=== PATIENT | female | born 1950 | race Caucasian/White ===

== ENCOUNTER 2019-05-06 19:01 | Emergency (ER) | payer MEDICARE, BC ==
--- NOTE | 2019-05-06 19:55 | CR ---
[id number] RAD/RAD Ribs Right W PA Chest EXAM: RAD Ribs Right W PA Chest INDICATION: FALL COMPARISON: None. FINDINGS: There is an acute right sixth rib fracture with minimal displacement. No other fracture is identified. The lungs are mildly hyperinflated, but clear. No pneumothorax. Normal heart size. IMPRESSION: 1. Acute minimally displaced right sixth rib fracture. Cristhian Sherman MD 05/06/191953 Thank you for allowing us to participate in the care of your patient.
--- NOTE | 2019-05-06 20:05 | EDM.PDOC ---
ED HPI GENERAL MEDICAL PROBLEM - General Chief Complaint: General Stated Complaint: FELL YESTERDAY Time Seen by Provider: 05/06/19 19:17 Source of Information: Reports: Patient History Limitations: Reports: No Limitations - History of Present Illness INITIAL COMMENTS - FREE TEXT/NARRATIVE: Fell yesterday and hurt right ribs Increased pain with movement Duration: Day(s):, Getting Worse Location: Reports: Chest Quality: Reports: Stabbing Severity: Moderate Worsens with: Reports: Breathing, Movement Context: Reports: Trauma Associated Symptoms: Reports: No Other Symptoms ED ROS GENERAL - Review of Systems Review Of Systems: See Below Respiratory: Reports: Shortness of Breath, Other (Right chest wall pain) Cardiovascular: Reports: No Symptoms ED EXAM, GENERAL - Physical Exam Exam: See Below Respiratory/Chest: Lungs Clear, Other (Right rib pain) Course - Orders/Labs/Meds Meds: Medications Discontinued Medications Generic Name Dose Route Start Last Admin Trade Name Freq PRN Reason Stop Dose Admin Tramadol HCl 50 mg 05/06/19 19:59 Ultram PO 05/06/19 20:00 ONETIME ONE - Re-Assessments/Exams Free Text/Narrative Re-Assessment/Exam: 05/06/19 20:02 Xray; 6th rib fracture Rx Tramadol Departure - Departure Time of Disposition: 20:15 Disposition: Home, Self-Care 01 Clinical Impression: Rib fracture Qualifiers: Encounter type: initial encounter Rib fracture type: single rib Fracture type: closed Laterality: right Qualified Code(s): S22.31XA - Fracture of one rib, right side, initial encounter for closed fracture - Discharge Information Instructions: Rib Fracture Referrals: Mahnaz Orourke MD [Primary Care Provider] - Additional Instructions: Rx Tramadol 50 mg every 6 hours as needed for pain
[2019-05-06] MEDS: traMADol 50 MG Tab PO ONE (20:08)
== END 2019-05-06 20:16 | disposition home or self-care (01) ==
LOC: VM.ED 19:01
DX: S22.31XA Fracture of one rib, right side, initial encounter for closed fracture (principal); W08.XXXA Fall from other furniture, initial encounter
CPT/HCPCS: 71101-RT; 99283-GF; 99284-25; A9270-GY

== ENCOUNTER 2020-06-13 14:29 | Emergency (ER) | payer MEDICARE, BC ==
[2020-06-13] MEDS ORDERED: Sodium Chloride 0.9% 10 ML Syringe FLUSH PRN (14:43)
[2020-06-13] MEDS ORDERED: GI Cocktail Oral Solution 30 ML PO ONE (14:44)
[2020-06-13] MEDS ORDERED: Aspirin 81 MG Tab.Chew PO STA (14:44)
--- NOTE | 2020-06-13 14:50 | EDM.PDOC ---
ED HPI GENERAL MEDICAL PROBLEM - General Chief Complaint: Chest Pain Stated Complaint: chest pain Time Seen by Provider: 06/13/20 14:35 Source of Information: Reports: Patient History Limitations: Reports: No Limitations - History of Present Illness INITIAL COMMENTS - FREE TEXT/NARRATIVE: Patient comes into the emergency department with complaint of chest discomfort. Patient states that the chest discomfort started intermittently about 2 weeks ago. Patient states it has been occurring intermittently throughout the days especially after she eats about 1 to 2 hours after she has consumed any food park. Patient states that her daughter did request that she come and be evaluated today in the emergency department. Patient states that yesterday she did have a significant episode after eating a hot dish with tomato based products she ended up coming to town and got nauseated dizzy and lightheaded and ended up having to go home. She laid down and rested and when she awoke she was feeling much better. States when she woke up this morning she was having the same discomfort and pain. She states that the pain is reproducible in the midsternal section however it does radiate up to the left side of her shoulder and sometimes down her left arm. Currently denies any nausea vomiting, shortness of breath, dizziness, or lightheadedness. Patient denies any significant cardiac history and states that she is relatively healthy otherwise. Patient denies concerns or complaints currently. Onset: Gradual Quality: Reports: Pressure, Throbbing Severity: Moderate Improves with: Reports: Rest Worsens with: Reports: Eating, Movement Context: Reports: Other Associated Symptoms: Reports: Nausea/Vomiting Left Upper Anterior Chest Pain Score (Numeric/FACES): 5 - Related Data Allergies Allergy/AdvReac Type Severity Reaction Status Date / Time hydrochlorothiazide Allergy Severe Hives Verified 05/06/19 22:58 Iodinated Contrast Media Allergy Severe Hives Verified 05/06/19 22:58 Sulfa (Sulfonamide Allergy Intermediate Rash Verified 05/06/19 22:58 Antibiotics) alendronate sodium AdvReac Intermediate Indigestion Verified 05/06/19 22:58 [From Fosamax] duloxetine [From Cymbalta] AdvReac Intermediate Headache Verified 05/06/19 22:58 gluten AdvReac Intermediate Diarrhea Verified 05/06/19 22:58 Home Meds: Home Meds Albuterol [Ventolin HFA] 2 puff INH Q4H PRN 05/06/19 [History] Aspirin [Halfprin] 81 mg PO DAILY 05/06/19 [History] Cyanocobalamin (Vitamin B-12) [Vitamin B-12] 1,000 mcg PO DAILY 05/06/19 [History] Cyclobenzaprine [Flexeril] 5 mg PO TID PRN 05/06/19 [History] Denosumab [Prolia] 1 ml SUBCUT ASDIRECTED 05/06/19 [History] FLUoxetine HCl [Prozac] 20 mg PO DAILY 05/06/19 [History] Ferrous Sulfate 325 mg PO BID 05/06/19 [History] Omeprazole Magnesium [Prilosec Otc] 20 mg PO DAILY 05/06/19 [History] Spironolactone [Aldactone] 50 mg PO DAILY 05/06/19 [History] traZODone HCl [Trazodone HCl] 50 - 100 mg PO BEDTIME 05/06/19 [History] Past Medical History HEENT History: Reports: Allergic Rhinitis, Macular Degeneration, Other (See Below) Other HEENT History: Exudative age-related macular degeneration of right eye Cardiovascular History: Reports: High Cholesterol, Hypertension Respiratory History: Reports: Other (See Below) Other Respiratory History: Chronic cough. Lung nodule Gastrointestinal History: Reports: Celiac Disease, Chronic Constipation, Colon Polyp, Diverticulosis, Fecal Incontinence, GERD, Irritable Bowel Syndrome, Other (See Below) Other Gastrointestinal History: IBS without diarrhea. Dyspepsia Genitourinary History: Reports: UTI, Recurrent, Other (See Below) Other Genitourinary History: Frequent UTIs. Vaginal Discharge. Atrophic Vaginitis Musculoskeletal History: Reports: Back Pain, Chronic, Fibromyalgia, Neck Pain, Chronic, Osteoarthritis, Osteoporosis, Other (See Below) Other Musculoskeletal History: Carpal Tunnel Syndrome of right wrist. Osteoarthritis of ankle, foot, and spine. Right knee pain. Chronic hip pain. Degenerative disc disease of lumbar spine. Disorder of Sacrum. Spondylolisthesis (Grade 1) Neurological History: Reports: Other (See Below) Other Neuro History: Chronic midline low back pain with right-sided sciatica Psychiatric History: Reports: Depression, Other (See Below) Other Psychiatric History: High risk medication use Hematologic History: Reports: Iron Deficiency Dermatologic History: Reports: Other (See Below) Other Dermatologic History: Dermatomyositis - Past Surgical History HEENT Surgical History: Reports: Adenoidectomy, Tonsillectomy GI Surgical History: Reports: Cholecystectomy, Other (See Below) Other GI Surgeries/Procedures: Flexible sigmoidoscopy Female Surgical History: Reports: Hysterectomy, Tubal Ligation ED ROS GENERAL - Review of Systems Review Of Systems: Comprehensive ROS is negative, except as noted in HPI. Constitutional: Reports: No Symptoms HEENT: Reports: No Symptoms Respiratory: Reports: No Symptoms Cardiovascular: Reports: No Symptoms Endocrine: Reports: No Symptoms GI/Abdominal: Reports: No Symptoms : Reports: No Symptoms Musculoskeletal: Reports: No Symptoms Skin: Reports: No Symptoms Neurological: Reports: No Symptoms Psychiatric: Reports: No Symptoms Hematologic/Lymphatic: Reports: No Symptoms ED EXAM, GENERAL - Physical Exam Exam: See Below Exam Limited By: No Limitations General Appearance: Alert, WD/WN, No Apparent Distress Head: Atraumatic, Normocephalic Neck: Normal Inspection, Supple, Non-Tender, Full Range of Motion Respiratory/Chest: No Respiratory Distress, Lungs Clear, Normal Breath Sounds, No Accessory Muscle Use, Chest Non-Tender Cardiovascular: Normal Peripheral Pulses, Regular Rate, Rhythm, No Edema GI/Abdominal: Normal Bowel Sounds, Soft, Non-Tender Back Exam: Normal Inspection, Full Range of Motion Extremities: Normal Inspection, Normal Range of Motion, Non-Tender, Normal Ca pillary Refill Neurological: Alert, Oriented, Normal Cognition, Normal Gait Psychiatric: Normal Affect, Normal Mood Skin Exam: Warm, Dry, Intact, Normal Color Course - Vital Signs Last Recorded V/S: Last Vital Signs Temp 36.7 C 06/13/20 14:43 Pulse 72 06/13/20 15:20 Resp 16 06/13/20 15:20 BP 143/68 H 06/13/20 15:20 Pulse Ox 94 L 06/13/20 15:20 - Orders/Labs/Meds Orders: Active Orders 24 hr Category Date Time Status Sodium Chloride 0.9% [Saline Flush] Med 06/13/20 14:43 Active 10 ml FLUSH ASDIRECTED PRN Peripheral IV Insertion Adult [OM.PC] Stat Oth 06/13/20 14:43 Ordered Medication Orders Sodium Chloride (Saline Flush) 10 ml FLUSH ASDIRECTED PRN PRN Reason: Keep Vein Open Last Admin: 06/13/20 14:46 Dose: 10 ml Documented by: RINKU Labs: Laboratory Tests 06/13/20 06/13/20 Range/Units 14:35 14:35 WBC 8.2 (4.0-10.0) x10^3/uL RBC 3.83 L (4.00-5.50) x10^6/uL Hgb 11.6 L (12.0-16.0) g/dL Hct 34.5 (33.0-47.0) % MCV 90.1 (78.0-93.0) fL MCH 30.3 (26.0-32.0) pg MCHC 33.6 (32.0-36.0) g/dL RDW Coeff of Arie 12.8 (10.0-15.0) % Plt Count 219 (130-400) x10^3/uL Neut % (Auto) 69.8 (50.0-80.0) % Lymph % (Auto) 21.1 L (25.0-50.0) % Gaston % (Auto) 6.7 (2.0-11.0) % Eos % (Auto) 2.0 (0.0-4.0) % Baso % (Auto) 0.4 (0.2-1.2) % Sodium 138 (136-145) mmol/L Potassium 4.7 (3.5-5.1) mmol/L Chloride 103 (98-107) mmol/L Carbon Dioxide 21 (21-32) mmol/L Anion Gap 18.7 H (5-15) mmol/L BUN 20 H (7-18) mg/dL Creatinine 1.4 H (0.55-1.02) mg/dL Est Cr Clr Drug Dosing 34.00 mL/min Estimated GFR (MDRD) 37 Glucose 90 (74-106) mg/dL Calcium 9.4 (8.5-10.1) mg/dL Corrected Calcium 9.88 (8.5-10.1) mg/dL Total Bilirubin 0.6 (0.2-1.0) mg/dL AST 25 (15-37) U/L ALT 21 (14-59) U/L Alkaline Phosphatase 81 (46-116) U/L Troponin I < 0.017 (<=0.056) ng/mL Total Protein 7.1 (6.4-8.2) g/dL Albumin 3.4 (3.4-5.0) g/dL Globulin 3.7 Albumin/Globulin Ratio 0.92 Meds: Medications Generic Name Dose Route Start Last Admin Trade Name Freq PRN Reason Stop Dose Admin Sodium Chloride 10 ml 06/13/20 14:43 06/13/20 14:46 Saline Flush FLUSH 10 ml ASDIRECTED PRN Administration Keep Vein Open Discontinued Medications Generic Name Dose Route Start Last Admin Trade Name Freq PRN Reason Stop Dose Admin Al Hydroxide/Mg Hydroxide 30 ml 06/13/20 14:44 06/13/20 14:49 Gi Cocktail PO 06/13/20 14:45 30 ml ONETIME ONE Administration Aspirin 162 mg 06/13/20 14:44 06/13/20 14:46 Aspirin PO 06/13/20 14:45 162 mg NOW STA Administration Nitroglycerin 0.4 mg 06/13/20 15:07 Nitrostat SL 06/13/20 15:08 ONETIME ONE - Re-Assessments/Exams Free Text/Narrative Re-Assessment/Exam: 06/13/20 15:29 pain gone in mid-sternal region. Able to palpate without difficulty. Should "spasm" comes and goes and last a couple seconds and if rubbing area relief noted and no further pain. This discomfort is not new and has been present greater than 2 weeks after talking with the patient more. The midsternal reproducible pain is resolved and feels better Departure - Departure Time of Disposition: 15:50 Disposition: Home, Self-Care 01 Condition: Good Clinical Impression: Muscle spasm of left shoulder area GERD (gastroesophageal reflux disease) Qualifiers: Esophagitis presence: with esophagitis Esophagitis bleeding: without hemorrhage Qualified Code(s): K21.00 - Gastro-esophageal reflux disease with esophagitis, without bleeding - Discharge Information *PRESCRIPTION DRUG MONITORING PROGRAM REVIEWED*: Not Applicable *COPY OF PRESCRIPTION DRUG MONITORING REPORT IN PATIENT TODD: Not Applicable Instructions: Muscle Cramps and Spasms, [id number], Food Choices for Gastroesophageal Reflux Disease, Adult, Gastroesophageal Reflux Disease, Adult, [id number] Referrals: Mahnaz Orourke MD [Primary Care Provider] - Forms: ED Department Discharge Additional Instructions: 1. rest 2. increase your water intake 3. Continue all at home medications 4. Activity and diet as tolerated 5. All labs, EKG, and x-ray were within normal limits today. 6. try to avoid spicy or acidic foods- healthy options added in discharge instructions 7. Try not to lay flat within 1-2 hours after eating to help reduce the reflux. 8. Can take over the counter Tylenol for any pain or discomfort 9. Follow up with PCP if symptoms continue, return, or progress 10. Call with any questions or concerns Sepsis Event Note (ED) - Evaluation Sepsis Screening Result: No Definite Risk - Focused Exam Vital Signs: Vital Signs Temp Pulse Resp BP Pulse Ox 06/13/20 15:20 72 16 143/68 H 94 L 06/13/20 14:43 36.7 C 76 16 137/51 L 98 - My Orders Last 24 Hours: My Active Orders 06/13/20 14:43 Sodium Chloride 0.9% [Saline Flush] 10 ml FLUSH ASDIRECTED PRN Peripheral IV Insertion Adult [OM.PC] Stat - Assessment/Plan Last 24 Hours: My Active Orders 06/13/20 14:43 Sodium Chloride 0.9% [Saline Flush] 10 ml FLUSH ASDIRECTED PRN Peripheral IV Insertion Adult [OM.PC] Stat Assessment:: 1. Epigastric pain 2. Acid reflux 3. Muscle spasm Plan: . Labs completed in the ER. Results reviewed with the patient 2. IV initiated in the emergency department 3. IV fluids provided 4. Chest xray completed in ER. Results reviewed with the patient 5. ASA 162mg chewable was given to the patient 6. EKG was completed in ER. Results reviewed with the patient 7. GI cocktail given- pain resolved. however, muscle spasms noted in shoulder lasting 2-3 seconds then gone again. 8. Patient and nursing staff was updated regarding the plan of care 8. Education provided the patient regarding activity, diet, rest, [id number] medication modalities, and follow-up care was provided 9. Patient and family are agreeable to the above plan of care 10. All questions and concerns were addressed with the patient and family prior to discharge
[2020-06-13] MEDS ORDERED: Nitroglycerin 0.4 MG Tab.SL SL ONE (15:07)
--- NOTE | 2020-06-13 15:39 | CR ---
[id number] RAD/RAD Chest PA or AP 1V EXAM: FRONTAL CHEST INDICATION: CHEST PAIN COMPARISON: May 06, 2019. DISCUSSION: Hyperinflation is compatible with underlying chronic obstructive pulmonary disease. No acute infiltrates are identified. Normal heart size. IMPRESSION: 1. No acute findings. Cristhian Sherman MD 06/13/20 1538 Thank you for allowing us to participate in the care of your patient.
[2020-06-13 15:40] LABS: CHLORIDE,CL 103 mmol/L (98-107); SODIUM,NA 138 mmol/L (136-145)
[2020-06-13 15:43] LABS: ANION GAP 18.7 mmol/L (5-15)
== END 2020-06-13 16:00 | disposition home or self-care (01) ==
LOC: VM.ED 14:29
DX: K21.00 Gastro-esophageal reflux disease with esophagitis, without bleeding (principal); M62.838 Other muscle spasm; I10 Essential (primary) hypertension; Z88.8 Allergy status to other drugs, medicaments and biological substances; Z91.041 Radiographic dye allergy status; Z88.2 Allergy status to sulfonamides; Z91.048 Other nonmedicinal substance allergy status; Z79.82 Long term (current) use of aspirin; Z79.899 Other long term (current) drug therapy
CPT/HCPCS: 71045; 80053; 84484; 85025; 99283; 99285-25; A9270-GY

== ENCOUNTER 2022-01-20 18:18 | Emergency (ER) | payer MEDICARE, BC ==
[2022-01-20 19:24] LABS: CHLORIDE,CL 105 mmol/L (98-107); SODIUM,NA 138 mmol/L (136-145)
[2022-01-20 19:25] LABS: ANION GAP 16.9 mmol/L (5-15); ESTIMATED GFR 24 mL/min (>=60)
== END 2022-01-20 20:06 | disposition home or self-care (01) ==
LOC: VM.ED 18:18
DX: E86.0 Dehydration (principal); I10 Essential (primary) hypertension; Z88.8 Allergy status to other drugs, medicaments and biological substances; Z91.041 Radiographic dye allergy status; Z88.2 Allergy status to sulfonamides; Z91.018 Allergy to other foods; Z79.899 Other long term (current) drug therapy; Z79.82 Long term (current) use of aspirin; Z90.49 Acquired absence of other specified parts of digestive tract; Z87.891 Personal history of nicotine dependence; Z20.822 Contact with and (suspected) exposure to COVID-19
CPT/HCPCS: 36415; 70450; 71046; 80053; 82550; 83615; 83690; 84443; 84484; 85025; 93005; 99284; U0002

== ENCOUNTER 2024-09-09 21:42 | Emergency (ER) | payer MEDICARE, BC ==
[2024-09-09] MEDS: Lidocaine 1% 10 ML MDV INJECT ONE (22:15)
[2024-09-09] MEDS: Diphtheria,Pertussis(Acell),Tetanus Vaccine 0.5 ML Syringe IM ONE (22:33)
== END 2024-09-09 23:15 | disposition home or self-care (01) ==
LOC: VM.ED 21:42
DX: S01.81XA Laceration without foreign body of other part of head, initial encounter (principal); S40.012A Contusion of left shoulder, initial encounter; Z23 Encounter for immunization; I10 Essential (primary) hypertension; E78.00 Pure hypercholesterolemia, unspecified; Z90.49 Acquired absence of other specified parts of digestive tract; Z90.710 Acquired absence of both cervix and uterus; Z79.899 Other long term (current) drug therapy; Z91.048 Other nonmedicinal substance allergy status; Z91.018 Allergy to other foods; Z88.5 Allergy status to narcotic agent; Z88.2 Allergy status to sulfonamides; W18.30XA Fall on same level, unspecified, initial encounter
CPT/HCPCS: 12013; 73030; 90471; 90715; 99283; J2003